=== PATIENT | female | born 1985 | race Hispanic/Latino ===

== ENCOUNTER 2018-05-06 07:00 | Inpatient (IN) | payer OTHER ==
[2018-05-06] MEDS ORDERED: AMPicillin 2 GM in Sodium Chloride 0.9% 100 ML IVPB ONE (07:53)
[2018-05-06] MEDS ORDERED: AMPicillin 1 GM in Sodium Chloride 0.9% 100 ML IVPB SCH (08:00)
[2018-05-06] MEDS ORDERED: Betamethasone Soluspan 30 mg/5mL Inj Susp IM SCH (09:00)
[2018-05-06] MEDS ORDERED: Lactated Ringer's 1,000 ML IV SCH ×2 (10:00)
[2018-05-06] MEDS ORDERED: Fentanyl/Bupivacaine HCl 250 ML EPI ONE (10:12)
[2018-05-06 10:25] LABS: BASO % 0.4 % (0.0-2.0); EOS # 0.1 K/uL (0.0-0.7); HEMOGLOBIN 12.5 g/dL (12.0-16.0); LYMPH % 20.4 % (20.0-40.0); MEAN CELL VOLUME 87.4 fl (81.0-99.0); MEAN CORPUSCULAR HEMOGLOBIN 30.3 pg (27.0-31.0); MEAN CORPUSCULAR HGB CONC 34.6 g/dL (33.0-37.0); MEAN PLATELET VOLUME 7.8 fl (7.2-11.7); MONO # 0.4 K/uL (0.0-0.8); MONO % 4.5 % (0.0-10.0); NEUT % 73.7 % (50.0-75.0); NRBC % 0.1 % (0.0-0.0); RBC 4.13 Mil/uL (3.80-5.20); RED CELL DISTRIBUTION WIDTH 14.5 % (11.5-14.5); WHITE BLOOD COUNT 9.6 K/uL (4.8-10.8)
[2018-05-06 11:10] VITALS: BMI 37.0
[2018-05-06] MEDS ORDERED: Oxytocin 30 UNIT 30 UNITS/500 ML BAG IV ONE ×3 (14:35→15:45)
[2018-05-06] MEDS ORDERED: OXYTOCIN/0.9 % NS 20 UNIT/1,000 ML BAG IV SCH (14:45)
--- NOTE | 2018-05-06 15:25 | OBADHP ---
Datetime: 05/06/2018 15:19 Admit Comment, IP Provider: Admit to L/D and start on Steroids and IV antibiotics for unk GBS and pr ematurity Pt explained the situation and understands and agreed Extremities - PN: Normal Abdomen - PN: Abnormal Back - PN: Normal Breast - PN: Not Done Lungs - PN: Normal Thyroid - PN: Normal Neurologic - PN: Normal HEENT - PN: Normal General - PN: Normal Presentation-Admit: Cephalic FHR - Baseline A Provider: 1`40/150 Amniotic Fluid Color, Provider: Clear Membranes, Provider: Ruptured Contraction Comments Provider: very irreg Comments, ACOG Physical Exam: SVE clear fluids in vagina, + cough test + nitrazine test Gestation - Est Wks by US: 35+ Pool Provider: Positive Nitrazine Provider: Positive IP Hx Assessment: The History has been Reviewed and is Current IP Chief Complaint: Suspected ruptured membranes NICHD Variability Prov Fetus A: Minimal - Undetectable to <5bpm NICHD Accel Fetus A IP Provider: 10X10 NICHD Decel Fetus A IP Provider: None Dilatation, Provider: 1cm Effacement, Provider: 20 Station, Provider: high DTRs - PN: Normal EGA AdmitDate IP: 35.5 IP Adm Impression: , intrauterine ; Ruptured Membranes IP Admit Plan: Admit to unit; Initiate labor protocol
--- NOTE | 2018-05-06 16:51 | OBDS ---
DELIVERY PERSONNEL Delivery Doctor: Tamra Hayes MD Vp Human Resources: Joanna Guillen RN Anesthesiologist: Tamra Marcos MD MATERNAL INFORMATION Delivery Anesthesia: Local; Epidural Medications in Delivery: betamethasone, pitocin, ampilcillin Estimated Blood Loss (ml): 250cc Placenta Cultured: No Other Maternal Complications: PTL Provider Comments: Delivered a living baby girl appears AGA tight nuchal cord x1 clamped and cut jennifer or to full delivery Baby cried spontaneously Peds called for prematurity 9/9; AF clear Placenta complete and intact Laceration in vagina and perineum noted and repaired as above Uterus contracted well Rectal done no defects, Tolerated procedure well no complications LABOR SUMMARY EDC: 06/05/2018 00:00 No. Babies in Womb: 1 Labor Anesthesia: Epidural LABOR INFORMATION Reason for Induction: Not Applicable Onset of Labor: 05/06/2018 10:00 Complete Dilatation: 05/06/2018 14:00 Oxytocin: Augmentation Group B Beta Strep: Not Done Antibiotics # of Doses: 2 Antibiotics Time of Last Dose: 1230 Steroids Given: Partial Course Reason Steroids Not Administered: Imminent Delivery MEMBRANES Membranes Rupture Method: Spontaneous Rupture of Membranes: 05/06/2018 06:10 Length of Rupture (hrs): 10.05 Amniotic Fluid Color: Clear Amniotic Fluid Amount: Small Amniotic Fluid Odor: Normal STAGES OF LABOR Stage 1 hrs: 4 Stage 1 min: 0 Stage 2 hrs: 2 Stage 2 min: 13 Stage 3 hrs: 0 Stage 3 min: 5 Total Time in Labor hrs: 6 Total Time in Labor min: 18 VAGINAL DELIVERY Episiotomy: None Laceration Extension: Second Degree Laceration Type: Perineal; Vaginal Laceration Repair: Yes Laceration Repair Note: a midline vaginal perineal laceration 1-2 dg noted and repaired with 2-0 chr omic continously for vagina and interrupted for deep no complications. CSECTION DELIVERY Primary Indication: N/A Secondary Indication: N/A CSection Incision: N/A Uterine Closure: N/A BABY A INFORMATION Delivery Date/Time: 05/06/2018 16:13 Method of Delivery: Vaginal Born in Route : No : N/A Forceps: N/A Vacuum Extraction: N/A Shoulder Dystocia : No SHOULDER DYSTOCIA BABY A Infant Delivery Date/Time: 05/06/2018 16:13 PRESENTATION/POSITION BABY A Presentation: Cephalic PLACENTA INFORMATION BABY A Placenta Delivery Time : 05/06/2018 16:18 Placenta Method of Delivery: Spontaneous Placenta Status: Delivered SCORES BABY A Heart Rate 1 min: >100 bpm Resp Effort 1 min: Good Cry Reflex Irritability 1 min: Cough or Sneeze or Pulls Away Muscle Tone 1 min: Active Motion Color 1 min: Body [place], Extremities Blue Resuscitation Effort 1 min: Tactile Stimulation SCORE 1 MIN: 9 Heart Rate 5 min: >100 bpm Resp Effort 5 min: Good Cry Reflex Irritability 5 min: Cough or Sneeze or Pulls Away Muscle Tone 5 min: Active Motion Color 5 min: Body [place], Extremities Blue Resuscitation Effort 5 min: N/A SCORE 5 MIN: 9 INFANT INFORMATION BABY A Gestational Age at Delivery: 35.5 Gestational Status: Outcome : Liveborn Condition : Stable Infant Sex: Female WEIGHT/LENGTH BABY A Birthweight (gms): 2710 Weight (lb): 6 Infant Weight (oz): 0 Infant Length Inches: 17.50 Length cms: 44.5 CORD INFORMATION BABY A No. Cord Vessels: 3 Nuchal Cord : Around Neck x1, Tight Cord Blood Taken: Yes Infant Suction: Mouth
[2018-05-06] MEDS ORDERED: Benzocaine/Menthol SPRAY TOP PRN ×2 (16:58→20:42)
[2018-05-06] MEDS ORDERED: Oxycodone/Acetaminophen 5/325 mg Tab PO PRN ×2 (16:58→20:42)
[2018-05-07 06:22] LABS: BASO % 0.3 % (0.0-2.0); EOS % 0.1 % (0.0-4.0); LYMPH % 14.9 % (20.0-40.0); MEAN CELL VOLUME 88.1 fl (81.0-99.0); MEAN CORPUSCULAR HEMOGLOBIN 30.1 pg (27.0-31.0); MEAN CORPUSCULAR HGB CONC 34.2 g/dL (33.0-37.0); MEAN PLATELET VOLUME 7.7 fl (7.2-11.7); MONO # 0.6 K/uL (0.0-0.8); MONO % 4.5 % (0.0-10.0); NEUT # 10.9 K/uL (1.8-7.0); NEUT % 80.2 % (50.0-75.0); NRBC % 0.1 % (0.0-0.0); RBC 3.65 Mil/uL (3.80-5.20); RED CELL DISTRIBUTION WIDTH 14.9 % (11.5-14.5); WHITE BLOOD COUNT 13.6 K/uL (4.8-10.8)
--- NOTE | 2018-05-07 08:14 | OBPPN ---
Datetime: 05/07/2018 08:09 PP Pain Prov: Within normal limits PP Pain Prov comment: No SOB, chest or leg pains PP Nausea Prov: Denies PP Breasts Prov: Normal PP Lungs Prov: Normal PP Abdomen/Uterus Prov: Abnormal PP Lochia Prov: Normal PP Vulva/Perineum Prov: Abnormal PP CVA Tenderness Prov: Normal PP Extremities Prov: Normal PP C/S Incision Prov: Not Applicable PP Progress Prov: Normal PP Comments Phys Exam Prov: breast feeding Abd soft nd, fundus firm below the umb NT Perineum repair ed Ext no calf tenderness PP Impression Prov: Normal progression PP Plan Prov: Continue present management PP Progress Note Prov: Continue pp care and OOB and ambulation IP PP Procedures: None Vital Signs Provider PP: Reviewed
[2018-05-07] MEDS ORDERED: Pneumococcal 23-Valent Vaccine IM ONE (13:05)
--- NOTE | 2018-05-08 08:15 | OBDCSUM ---
Datetime: 05/08/2018 08:11 Discharged to, Provider: Home Follow up at, Provider: Dr Hayes Disch Instr Activity: Bedrest; May be up to bathroom; May be up for meals; May Shower Disch Instr Diet: Regular Discharge Instructions, Provider: Routine instructions given Discharge Diagnosis, Provider: Term Delivered Discharge Time: 05/08/2018 08:11 Follow up in weeks, Provider: 4-6 wks Disch Referrals: None Contraception discussed, Prov: Yes Disch Activity Restrictions: No exercising; No lifting; No driving; Minimize walking; Minimize stair -climbing; No sexual activity; Nothing in vagina - [place], tampons, douche Discharge Comment, Provider: Pelvic rest Continue PNC vit and iron Contraception after Delivery: Undecided
--- NOTE | 2018-05-08 08:21 | OBPPN ---
Datetime: 05/08/2018 08:14 PP Pain Prov: Within normal limits PP Pain Prov comment: no SOB, chest or leg pains PP Nausea Prov: Denies PP Flatus Prov: Yes PP Breasts Prov: Normal PP Heart Prov: Normal PP Lungs Prov: Normal PP Abdomen/Uterus Prov: Abnormal PP Lochia Prov: Normal PP Vulva/Perineum Prov: Abnormal PP Extremities Prov: Normal PP C/S Incision Prov: Not Applicable PP Progress Prov: Normal PP Comments Phys Exam Prov: breast feeding; Abd soft nd, fundus firm below the umb NT, Perineum repa ired Ext no calf tenderness PP Impression Prov: Normal progression PP Plan Prov: Discharge PP Progress Note Prov: D/C home with instructions IP PP Procedures: None Vital Signs Provider PP: Reviewed
[2018-05-08] MEDS ORDERED: Influenza Vaccine (5 YR UP)/PF 60 MCG/0.5 ML SYR IM ONE (10:00)
[2018-05-08 21:15] VITALS: BP 131/79; PULSE 76; RESP 19; TEMP 98; O2SAT 100
== END 2018-05-08 14:00 | disposition home or self-care (01) | DRG 805 ==
LOC: H.EROB2 07:00 → H.L&D 07:53 → H.OB/GYN 20:08
PROVIDERS: ADMIT Specialist; ATTEND Specialist
PROC: 10E0XZZ Delivery of Products of Conception, External Approach (ICD-10-PCS; principal; 2018-05-06)
PROC: 0KQM0ZZ Repair Perineum Muscle, Open Approach (ICD-10-PCS; 2018-05-06)
PROC: 4A1HXCZ Monitoring of Products of Conception, Cardiac Rate, External Approach (ICD-10-PCS; 2018-05-06)
DX: O69.1XX0 Labor and delivery complicated by cord around neck, with compression, not applicable or unspecified (principal); O60.14X0 Preterm labor third trimester with preterm delivery third trimester, not applicable or unspecified; Z37.0 Single live birth; O70.1 Second degree perineal laceration during delivery; Z3A.35 35 weeks gestation of pregnancy